=== PATIENT | male | born 2000 | race Two or more races ===

== ENCOUNTER 2025-06-20 00:28 | Emergency (ER) | payer OTHER ==
[2025-06-20] MEDS ORDERED: Acetaminophen 500 MG TAB ONE (00:59)
[2025-06-20] MEDS ORDERED: Ibuprofen 200 MG TAB ONE (00:59)
[2025-06-20] MEDS ORDERED: Lidocaine 1% w/Epinephrine 1:200K 30 ML VIAL ONE (00:59)
[2025-06-20] MEDS ORDERED: Amoxicillin/Potassium Clav 875 MG TAB ONE (01:36)
== END 2025-06-20 01:35 | disposition home or self-care (01) ==
LOC: CSHERS 00:28
DX: M79.18 Myalgia, other site (principal)
CPT/HCPCS: 10080